=== PATIENT | male | born 1965 | race Caucasian/White ===

== ENCOUNTER → 2018-09-30 | Outpatient (CLI) | payer OTHER ==
[~2018-09-30] MED LIST: ASPIR 8181 MG PO; BRILINTA90 MG PO; CLARITIN10 MG PO; DIPHENHIST50 MG PO; FISH OIL 1,001000 M2 PO; FLONASE 0.05%50 MCG NASAL; FOLIC ACID1 MG PO; IBUPROFEN 400400 M1 PO; LIPITOR80 MG PO; LOPRESSOR50 PO; MAGOX 400400 MG PO; METOPROLOL SUCC50 MG PO; NEURONTIN 300300 M1 PO; TRAZODONE HCL100 MG PO; VITAMIN B-1100 M2 PO; VOLTAREN GEL 1100 G2 TOP
== END ==
LOC: M.PC 05:14
DX: M47.22 Other spondylosis with radiculopathy, cervical region (principal); M50.122 Cervical disc disorder at C5-C6 level with radiculopathy; M47.816 Spondylosis without myelopathy or radiculopathy, lumbar region; Z79.899 Other long term (current) drug therapy; M48.02 Spinal stenosis, cervical region; M51.36 Other intervertebral disc degeneration, lumbar region; Z91.030 Bee allergy status; Z72.0 Tobacco use; Z88.0 Allergy status to penicillin

== ENCOUNTER → 2019-02-03 | Outpatient (CLI) | payer OTHER ==
[~2019-02-03] MED LIST changes: +CYMBALTA60 MG PO
== END ==
LOC: M.PC 05:17
DX: M50.10 Cervical disc disorder with radiculopathy, unspecified cervical region (principal); M47.22 Other spondylosis with radiculopathy, cervical region; M48.02 Spinal stenosis, cervical region; M47.816 Spondylosis without myelopathy or radiculopathy, lumbar region; M12.88 Other specific arthropathies, not elsewhere classified, other specified site

== ENCOUNTER → 2019-02-10 | Outpatient (CLI) | payer OTHER | END | disposition home or self-care (01) | LOC: M.PC 05:26 | DX: M47.816 Spondylosis without myelopathy or radiculopathy, lumbar region (principal); M54.5 Low back pain; M51.36 Other intervertebral disc degeneration, lumbar region; M53.3 Sacrococcygeal disorders, not elsewhere classified; M50.10 Cervical disc disorder with radiculopathy, unspecified cervical region; M47.22 Other spondylosis with radiculopathy, cervical region; M48.02 Spinal stenosis, cervical region; F17.210 Nicotine dependence, cigarettes, uncomplicated; Z98.890 Other specified postprocedural states; Z79.899 Other long term (current) drug therapy; Z88.0 Allergy status to penicillin ==

== ENCOUNTER → 2019-03-01 | Outpatient (CLI) | payer OTHER | LOC: M.PC 01:16 | DX: M47.22 Other spondylosis with radiculopathy, cervical region (principal); M48.061 Spinal stenosis, lumbar region without neurogenic claudication; M51.36 Other intervertebral disc degeneration, lumbar region; M16.0 Bilateral primary osteoarthritis of hip; Z88.0 Allergy status to penicillin ==